=== PATIENT | male | born 1965 | race Two or more races ===

== ENCOUNTER 2018-10-14 11:14 | Emergency (ER) | payer SELFPAY ==
[~2018-10-14] VITALS: Ht 175.3 cm; Wt 102.3 kg
[2018-10-14] MEDS ORDERED: METF-960 PO (11:25)
[2018-10-14 11:35] LABS: GLUCOSE,POINT OF CARE 228 MG/DL (70-110)
[2018-10-14] MEDS ORDERED: BENZONATATE 100 MG CAPSULE PO ONE (12:00)
[2018-10-14 14:38] VITALS: BP 126/70
== END 2018-10-14 14:39 | disposition home or self-care (01) ==
LOC: EMS 11:14
DX: R05 Cough (principal); I10 Essential (primary) hypertension; E11.9 Type 2 diabetes mellitus without complications

== ENCOUNTER 2019-02-16 15:52 | Emergency (ER) | payer SELFPAY ==
[~2019-02-16] VITALS: Ht 175.3 cm; Wt 93.2 kg
[~2019-02-16 15:52] MED LIST: METF-960 PO
[2019-02-16] MEDS ORDERED: DEXT118S5 PO (15:56)
[2019-02-16 16:05] LABS: GLUCOSE,POINT OF CARE 127 MG/DL (70-110)
[2019-02-16 17:40] VITALS: BP 126/81
[2019-02-16] MEDS ORDERED: DOXYCYCLINE HYCLATE 100 MG CAPSULE PO ONE (17:45)
== END 2019-02-16 17:57 | disposition home or self-care (01) ==
LOC: EMS 15:55
DX: J40 Bronchitis, not specified as acute or chronic (principal); I10 Essential (primary) hypertension; E11.9 Type 2 diabetes mellitus without complications; F17.210 Nicotine dependence, cigarettes, uncomplicated; Z79.84 Long term (current) use of oral hypoglycemic drugs

== ENCOUNTER 2019-03-02 15:42 | Emergency (ER) | payer SELFPAY ==
[~2019-03-02] VITALS: Ht 175.3 cm; Wt 127.3 kg
[~2019-03-02 15:42] MED LIST changes: +DEXT118S5 PO
[2019-03-02] MEDS ORDERED: METF-960 PO (15:57)
[2019-03-02] MEDS ORDERED: LOSA25TA41 PO (15:57)
[2019-03-02] MEDS ORDERED: GLIM4 PO (15:57)
[2019-03-02] MEDS ORDERED: ATOR40TA28 PO (15:57)
[2019-03-02 16:00] LABS: GLUCOSE,POINT OF CARE 228 MG/DL (70-110)
[2019-03-02 16:45] LABS: BASOPHILS % (AUTO) 0.6 % (0.0-2.0); EOSINOPHILS % (AUTO) 1.8 % (1.0-6.0); LYMPHOCYTES # (AUTO) 2.3 K/uL (1.0-4.8); LYMPHOCYTES % (AUTO) 26.8 % (22.0-44.0); MEAN CORPUSCULAR HEMOGLOBIN 27.9 pg (26.0-34.0); MEAN CORPUSCULAR HGB CONC 33.2 G/dL (31.0-37.0); MEAN CORPUSCULAR VOLUME 84 fL (80-100); MONOCYTES # (AUTO) 0.6 K/uL (0.1-1.0); MONOCYTES % (AUTO) 6.4 % (2.0-9.0); NEUTROPHILS # (AUTO) 5.6 K/uL (1.8-7.7); NEUTROPHILS % (AUTO) 64.4 % (40.0-70.0); PLATELET COUNT (AUTO) 234 K/uL (150-450); RED CELL DISTRIBUTION WIDTH 13.3 % (11.5-14.5)
[2019-03-02 16:52] LABS: CARBON DIOXIDE 31 mmol/L (22-29); CHLORIDE 103 mmol/L (98-107); POTASSIUM 4.2 mmol/L (3.5-5.1); SODIUM SERUM 139 mmol/L (136-145)
[2019-03-02 16:53] LABS: ANION GAP 5 mmol/L (8-16); CALCIUM, TOTAL 9.7 mg/dL (8.8-10.5); CREATININE 1.12 mg/dL (0.60-1.30); GLOMERULAR FILTR. RATE CALC > 60 mL/min (>60); GLUCOSE,RANDOM 215 mg/dL (70-110); UREA NITROGEN, BLOOD 10 mg/dL (7-18)
[2019-03-02 16:58] LABS: ALANINE AMINOTRANSFERASE 30 U/L (12-78); ALBUMIN 3.6 g/dL (3.4-5.0); ALKALINE PHOSPHATASE 106 U/L (46-116); ASPARTATE AMINOTRANSFERASE 13 U/L (15-37); BILIRUBIN,TOTAL 0.4 mg/dL (0.1-1.0); TOTAL PROTEIN, SERUM 7.5 g/dL (6.4-8.2)
[2019-03-02 17:03] LABS: B-TYPE NATRIURETIC PEPTIDE 8 pg/mL (0-100)
[2019-03-02] MEDS ORDERED: IBUPROFEN 800 MG TABLET PO ONE (17:30)
[2019-03-02 18:20] LABS: AMPHET/METH SCREEN,URINE NEGATIVE (NEGATIVE); BARBITURATE SCREEN, URINE NEGATIVE (NEGATIVE); BENZODIAZEPINES SCREEN,URINE NEGATIVE (NEGATIVE); CANNABINOID SCREEN,URINE NEGATIVE (NEGATIVE); COCAINE SCREEN,URINE NEGATIVE (NEGATIVE); METHADONE SCREEN, URINE NEGATIVE (NEGATIVE); OPIATE SCREEN,URINE NEGATIVE (NEGATIVE)
[2019-03-02 18:21] LABS: PHENCYCLIDINE SCREEN,URINE NEGATIVE (NEGATIVE)
[2019-03-02 18:35] VITALS: BP 135/72
== END 2019-03-02 18:54 | disposition home or self-care (01) ==
LOC: EMS 15:43
DX: L03.221 Cellulitis of neck (principal); E11.9 Type 2 diabetes mellitus without complications; E78.00 Pure hypercholesterolemia, unspecified; I10 Essential (primary) hypertension; F17.210 Nicotine dependence, cigarettes, uncomplicated; Z79.899 Other long term (current) drug therapy

== ENCOUNTER 2020-04-17 16:34 | Emergency (ER) | payer MEDICAID ==
[~2020-04-17] VITALS: Ht 175.3 cm; Wt 97.7 kg
[~2020-04-17 16:34] MED LIST changes: +ATOR40TA28 PO; -DEXT118S5 PO; +GLIM4 PO; +LOSA25TA21 PO
[2020-04-17 21:12] LABS: COVID AG,FIA SOURCE NASOPHARYNGEAL
[2020-04-17 21:23] LABS: BASOPHILS % (AUTO) 0.8 % (0.0-2.0); EOSINOPHILS % (AUTO) 4.7 % (1.0-6.0); HEMATOCRIT 43.5 % (41-53); HEMOGLOBIN 14.4 g/dL (13.5-17.5); LYMPHOCYTES # (AUTO) 1.8 K/uL (1.0-4.8); LYMPHOCYTES % (AUTO) 26.2 % (22.0-44.0); MEAN CORPUSCULAR HEMOGLOBIN 28.8 pg (26.0-34.0); MEAN CORPUSCULAR HGB CONC 33.1 G/dL (31.0-37.0); MEAN CORPUSCULAR VOLUME 87 fL (80-100); MONOCYTES # (AUTO) 0.5 K/uL (0.1-1.0); MONOCYTES % (AUTO) 7.4 % (2.0-9.0); NEUTROPHILS # (AUTO) 4.1 K/uL (1.8-7.7); NEUTROPHILS % (AUTO) 60.9 % (40.0-70.0); PLATELET COUNT (AUTO) 205 K/uL (150-450); RED BLOOD CELL COUNT(AUTO) 5.01 MIL/uL (4.50-5.90); RED CELL DISTRIBUTION WIDTH 12.9 % (11.5-14.5)
[2020-04-17 21:33] LABS: INFLUENZA TYPE A NEGATIVE FOR TYPE A (NEGATIVE); INFLUENZA TYPE B NEGATIVE FOR TYPE B (NEGATIVE)
[2020-04-17 21:34] LABS: CALCIUM, TOTAL 9.2 mg/dL (8.8-10.5); CREATININE 1.34 mg/dL (0.60-1.30); POTASSIUM 3.9 mmol/L (3.5-5.1)
[2020-04-17 21:38] LABS: ALBUMIN 3.6 g/dL (3.4-5.0); BILIRUBIN,TOTAL 0.4 mg/dL (0.1-1.0); TOTAL PROTEIN, SERUM 7.2 g/dL (6.4-8.2)
[2020-04-18 00:28] VITALS: BP 135/78
== END 2020-04-18 00:48 | disposition home or self-care (01) ==
LOC: EMS 16:34
DX: R05 Cough (principal); R06.02 Shortness of breath; E11.9 Type 2 diabetes mellitus without complications; Z20.828 Contact with and (suspected) exposure to other viral communicable diseases; E78.00 Pure hypercholesterolemia, unspecified; I10 Essential (primary) hypertension; F17.210 Nicotine dependence, cigarettes, uncomplicated; F12.90 Cannabis use, unspecified, uncomplicated
CPT/HCPCS: 36415; 71045; 80053; 82962; 85025; 87426; 87804; 99284; 99406; U0003

== ENCOUNTER 2021-05-13 18:43 | Emergency (ER) | payer MEDICAID ==
[~2021-05-13] VITALS: Ht 175.3 cm; Wt 94.5 kg
[~2021-05-13 18:43] MED LIST changes: +LOSA-370 PO; -LOSA25TA21 PO; +METF-1211 PO; -METF-960 PO
[2021-05-13 19:43] LABS: BASOPHILS % (AUTO) 1.2 % (0.0-2.0); EOSINOPHILS % (AUTO) 6.7 % (1.0-6.0); HEMATOCRIT 42.7 % (41-53); HEMOGLOBIN 14.4 g/dL (13.5-17.5); LYMPHOCYTES # (AUTO) 0.9 K/uL (1.0-4.8); LYMPHOCYTES % (AUTO) 19.8 % (22.0-44.0); MEAN CORPUSCULAR HEMOGLOBIN 27.5 pg (26.0-34.0); MEAN CORPUSCULAR HGB CONC 33.7 G/dL (31.0-37.0); MEAN CORPUSCULAR VOLUME 82 fL (80-100); MONOCYTES # (AUTO) 0.5 K/uL (0.1-1.0); MONOCYTES % (AUTO) 10.2 % (2.0-9.0); NEUTROPHILS # (AUTO) 2.9 K/uL (1.8-7.7); NEUTROPHILS % (AUTO) 62.1 % (40.0-70.0); PLATELET COUNT (AUTO) 296 K/uL (150-450); RED BLOOD CELL COUNT(AUTO) 5.22 MIL/uL (4.50-5.90); RED CELL DISTRIBUTION WIDTH 12.8 % (11.5-14.5)
[2021-05-13 20:10] LABS: B-TYPE NATRIURETIC PEPTIDE 24 pg/mL (0-100)
[2021-05-13] MEDS: SODIUM CHLORIDE 0.9% 1,000 ML IV ONE (20:15)
[2021-05-13] MEDS: FAMOTIDINE 10 MG/ML 2 ML VIAL IVP ONE (20:16)
[2021-05-13] MEDS: MAG HYDROX/AL HYDROX/SIMETH 30 ML SUSP UDCUP PO ONE (20:16)
[2021-05-13] MEDS: KETOROLAC TROMETHAMINE 30 MG/ML VIAL IVP ONE (20:16)
[2021-05-13 20:18] LABS: ALANINE AMINOTRANSFERASE 48 U/L (12-78); ALBUMIN 3.4 g/dL (3.4-5.0); ALKALINE PHOSPHATASE 177 U/L (46-116); ANION GAP 9 mmol/L (8-16); ASPARTATE AMINOTRANSFERASE 22 U/L (15-37); BILIRUBIN,TOTAL 0.4 mg/dL (0.1-1.0); CARBON DIOXIDE 29 mmol/L (22-29); CHLORIDE 97 mmol/L (98-107); CREATINE KINASE, TOTAL ONLY 112 U/L (39-308); CREATININE 1.38 mg/dL (0.60-1.30); GLOMERULAR FILTR. RATE CALC 53 mL/min (>60); POTASSIUM 4.5 mmol/L (3.5-5.1); SODIUM SERUM 135 mmol/L (136-145); TOTAL PROTEIN, SERUM 7.8 g/dL (6.4-8.2); UREA NITROGEN, BLOOD 13 mg/dL (7-18)
[2021-05-13 20:25] LABS: GLUCOSE,RANDOM 452 mg/dL (70-110)
[2021-05-13 20:30] LABS: ACETONE,BLOOD NEGATIVE (NEGATIVE)
[2021-05-13 20:31] LABS: COVID AG,FIA SOURCE NASOPHARYNGEAL
[2021-05-13] MEDS: INSULIN REGULAR, HUMAN 100 UNITS/ML IVP ONE (21:12)
[2021-05-13 21:25] LABS: APPEARANCE,URINE CLEAR (CLEAR); BILIRUBIN,URINE NEGATIVE (NEGATIVE); GLUCOSE, URINE (UA) >=1000 mg/dL (NEGATIVE); KETONES,URINE NEGATIVE (NEGATIVE); LEUKOCYTE ESTERASE ,URINE NEGATIVE (NEGATIVE); NITRATE,URINE NEGATIVE (NEGATIVE); OCCULT BLOOD,URINE NEGATIVE (NEGATIVE); PH,URINE 5.5 (5.0-8.0); PROTEIN,URINE NEGATIVE (NEGATIVE); UROBILINOGEN,URINE 0.2 mg/dL (<=1.0)
[2021-05-13 21:41] LABS: INFLUENZA TYPE A NEGATIVE FOR TYPE A (NEGATIVE); INFLUENZA TYPE B NEGATIVE FOR TYPE B (NEGATIVE)
[2021-05-13 21:53] VITALS: BP 129/80
[2021-05-13 22:12] LABS: BACTERIA,URINE None Seen /HPF (None Seen); RBC,URINE None Seen /HPF (0-2); WBC,URINE 0-2 /HPF (0-5)
[2021-05-13 22:21] LABS: GLUCOSE,POINT OF CARE 300 MG/DL (70-110)
== END 2021-05-13 23:26 | disposition home or self-care (01) ==
LOC: EMS 18:46
DX: R05.9 Cough, unspecified (principal); B34.9 Viral infection, unspecified; E11.9 Type 2 diabetes mellitus without complications; E78.00 Pure hypercholesterolemia, unspecified; I10 Essential (primary) hypertension; F17.210 Nicotine dependence, cigarettes, uncomplicated; F12.90 Cannabis use, unspecified, uncomplicated; Z20.822 Contact with and (suspected) exposure to COVID-19; Z79.84 Long term (current) use of oral hypoglycemic drugs
CPT/HCPCS: 36415; 71045; 80053; 81001; 81003; 82009; 82550; 82962; 83735; 83880; 84100; 84484; 85025; 87426; 87804; 93005; 96361; 96374; 96375; 99285; J1885; J7030; U0003

== ENCOUNTER 2021-06-03 08:47 | Emergency (ER) | payer MEDICAID ==
[~2021-06-03] VITALS: Ht 175.3 cm; Wt 94.5 kg
[2021-06-03 09:44] VITALS: BP 115/68
[2021-06-03] MEDS ORDERED: AZITHROMYCIN 500 MG TABLET PO ONE (10:30)
[2021-06-03 11:01] LABS: BASOPHILS % (AUTO) 1.1 % (0.0-2.0); HEMATOCRIT 38.7 % (41-53); LYMPHOCYTES % (AUTO) 23.1 % (22.0-44.0); MEAN CORPUSCULAR HEMOGLOBIN 27.3 pg (26.0-34.0); MEAN CORPUSCULAR HGB CONC 33.7 G/dL (31.0-37.0); MEAN CORPUSCULAR VOLUME 81 fL (80-100); MONOCYTES # (AUTO) 0.5 K/uL (0.1-1.0); MONOCYTES % (AUTO) 11.2 % (2.0-9.0); NEUTROPHILS # (AUTO) 2.5 K/uL (1.8-7.7); NEUTROPHILS % (AUTO) 55.6 % (40.0-70.0); PLATELET COUNT (AUTO) 293 K/uL (150-450); RED BLOOD CELL COUNT(AUTO) 4.77 MIL/uL (4.50-5.90); RED CELL DISTRIBUTION WIDTH 12.8 % (11.5-14.5)
[2021-06-03 11:15] LABS: COVID AG,FIA SOURCE NASOPHARYNGEAL
[2021-06-03 11:36] LABS: ANION GAP 10 mmol/L (8-16); CALCIUM, TOTAL 9.6 mg/dL (8.8-10.5); CARBON DIOXIDE 27 mmol/L (22-29); CHLORIDE 101 mmol/L (98-107); GLOMERULAR FILTR. RATE CALC > 60 mL/min (>60); GLUCOSE,RANDOM 264 mg/dL (70-110); POTASSIUM 4.3 mmol/L (3.5-5.1); SODIUM SERUM 138 mmol/L (136-145); UREA NITROGEN, BLOOD 15 mg/dL (7-18)
[2021-06-03] MEDS ORDERED: AZIT-84 PO ×2 (11:37→12:05)
[2021-06-03 11:47] LABS: ALANINE AMINOTRANSFERASE 45 U/L (12-78); ALKALINE PHOSPHATASE 171 U/L (46-116); ASPARTATE AMINOTRANSFERASE 27 U/L (15-37); BILIRUBIN,TOTAL 0.4 mg/dL (0.1-1.0); TOTAL PROTEIN, SERUM 7.4 g/dL (6.4-8.2)
== END 2021-06-03 11:58 | disposition home or self-care (01) ==
LOC: EMS 08:49
DX: J18.9 Pneumonia, unspecified organism (principal); I10 Essential (primary) hypertension; E11.9 Type 2 diabetes mellitus without complications; E78.00 Pure hypercholesterolemia, unspecified; F17.210 Nicotine dependence, cigarettes, uncomplicated; Z79.84 Long term (current) use of oral hypoglycemic drugs; Z79.899 Other long term (current) drug therapy; Z20.822 Contact with and (suspected) exposure to COVID-19
CPT/HCPCS: 36415; 71045; 80053; 82962; 85025; 87426; 99284; Q9967

== ENCOUNTER 2021-06-17 09:46 | Emergency (ER) | payer MEDICAID ==
[~2021-06-17] VITALS: Ht 175.3 cm; Wt 95.5 kg
[~2021-06-17 09:46] MED LIST changes: +AZIT-84 PO
[2021-06-17 12:11] LABS: COVID AG,FIA SOURCE NASOPHARYNGEAL
[2021-06-17 14:00] VITALS: BP 124/80
== END 2021-06-17 14:20 | disposition home or self-care (01) ==
LOC: EMS 09:54
DX: E11.65 Type 2 diabetes mellitus with hyperglycemia (principal); R05.9 Cough, unspecified; I10 Essential (primary) hypertension; E78.00 Pure hypercholesterolemia, unspecified; F17.210 Nicotine dependence, cigarettes, uncomplicated; Z79.899 Other long term (current) drug therapy; Z20.822 Contact with and (suspected) exposure to COVID-19
CPT/HCPCS: 71045; 99284

== ENCOUNTER 2021-06-26 23:38 | Emergency (ER) | payer MEDICAID ==
[~2021-06-26] VITALS: Ht 175.3 cm; Wt 91.0 kg
[~2021-06-26 23:38] MED LIST changes: -LOSA-370 PO; +LOSA-381 PO
[2021-06-27] MEDS ORDERED: SODIUM CHLORIDE 0.9% 1,000 ML IV ONE (00:30)
[2021-06-27 00:38] LABS: BASOPHILS % (AUTO) 0.1 % (0.0-2.0); EOSINOPHILS % (AUTO) 0 % (1.0-6.0); HEMATOCRIT 38.9 % (41-53); HEMOGLOBIN 12.8 g/dL (13.5-17.5); LYMPHOCYTES # (AUTO) 1.1 K/uL (1.0-4.8); LYMPHOCYTES % (AUTO) 12.1 % (22.0-44.0); MEAN CORPUSCULAR HEMOGLOBIN 26.9 pg (26.0-34.0); MEAN CORPUSCULAR HGB CONC 32.8 G/dL (31.0-37.0); MEAN CORPUSCULAR VOLUME 82 fL (80-100); MONOCYTES # (AUTO) 0.5 K/uL (0.1-1.0); MONOCYTES % (AUTO) 5.9 % (2.0-9.0); NEUTROPHILS # (AUTO) 7.2 K/uL (1.8-7.7); NEUTROPHILS % (AUTO) 81.9 % (40.0-70.0); PLATELET COUNT (AUTO) 397 K/uL (150-450); RED BLOOD CELL COUNT(AUTO) 4.75 MIL/uL (4.50-5.90); RED CELL DISTRIBUTION WIDTH 13.3 % (11.5-14.5)
[2021-06-27 00:44] LABS: ANION GAP 10 mmol/L (8-16); CALCIUM, TOTAL 10.1 mg/dL (8.8-10.5); CARBON DIOXIDE 28 mmol/L (22-29); CHLORIDE 95 mmol/L (98-107); CREATININE 1.51 mg/dL (0.60-1.30); GLOMERULAR FILTR. RATE CALC 58 mL/min (>60); GLUCOSE,RANDOM 394 mg/dL (70-110); POTASSIUM 4.2 mmol/L (3.5-5.1); SODIUM SERUM 133 mmol/L (136-145); UREA NITROGEN, BLOOD 31 mg/dL (7-18)
[2021-06-27 00:50] LABS: ACETONE,BLOOD NEGATIVE (NEGATIVE); ALANINE AMINOTRANSFERASE 33 U/L (12-78); ALBUMIN 3.5 g/dL (3.4-5.0); ALKALINE PHOSPHATASE 152 U/L (46-116); ASPARTATE AMINOTRANSFERASE 11 U/L (15-37); BILIRUBIN,TOTAL 0.3 mg/dL (0.1-1.0); TOTAL PROTEIN, SERUM 8.3 g/dL (6.4-8.2)
[2021-06-27 00:51] LABS: APPEARANCE,URINE CLEAR (CLEAR); BILIRUBIN,URINE NEGATIVE (NEGATIVE); GLUCOSE, URINE (UA) >=1000 mg/dL (NEGATIVE); KETONES,URINE NEGATIVE (NEGATIVE); LEUKOCYTE ESTERASE ,URINE NEGATIVE (NEGATIVE); NITRATE,URINE NEGATIVE (NEGATIVE); OCCULT BLOOD,URINE NEGATIVE (NEGATIVE); PROTEIN,URINE NEGATIVE (NEGATIVE); UROBILINOGEN,URINE 0.2 mg/dL (<=1.0)
[2021-06-27 01:01] LABS: BACTERIA,URINE None Seen /HPF (None Seen); RBC,URINE None Seen /HPF (0-2); WBC,URINE None Seen /HPF (0-5)
[2021-06-27 01:58] VITALS: BP 124/70
[2021-06-27 02:01] LABS: GLUCOSE,POINT OF CARE 279 MG/DL (70-110)
== END 2021-06-27 02:13 | disposition home or self-care (01) ==
LOC: EMS 23:39
DX: E11.65 Type 2 diabetes mellitus with hyperglycemia (principal); I10 Essential (primary) hypertension; E78.00 Pure hypercholesterolemia, unspecified; F17.210 Nicotine dependence, cigarettes, uncomplicated; Z79.899 Other long term (current) drug therapy; Z79.84 Long term (current) use of oral hypoglycemic drugs
CPT/HCPCS: 80053; 81001; 82009; 82962; 85025; 96360; 99283; 36415-L1; 36415-TC

== ENCOUNTER 2024-04-21 09:11 | Emergency (ER) | payer MEDICAID, SELFPAY ==
[~2024-04-21] VITALS: Ht 175.3 cm; Wt 92.3 kg
[~2024-04-21 09:11] MED LIST changes: +AZIT-164 PO; -AZIT-84 PO; +GLIM-8 PO; -GLIM4 PO
[2024-04-21 09:17] VITALS: TEMP 98.1
[2024-04-21 09:40] LABS: GLUCOMETER DEV NAME(LOC) ERT.6; GLUCOSE,POINT OF CARE 368 MG/DL (70-110)
[2024-04-21 09:51] LABS: COVID AG,FIA SOURCE NASAL SWAB
[2024-04-21 10:23] LABS: SARS-COV2 (COVID) ANTIGEN,FIA Negative (Negative)
[2024-04-21 10:34] LABS: INFLUENZA TYPE A NEGATIVE FOR TYPE A (NEGATIVE); INFLUENZA TYPE B NEGATIVE FOR TYPE B (NEGATIVE)
[2024-04-21 12:04] LABS: BASOPHILS % (AUTO) 0.8 % (0.0-2.0); EOSINOPHILS % (AUTO) 3.6 % (1.0-6.0); HEMATOCRIT 43.6 % (41-53); HEMOGLOBIN 14.4 g/dL (13.5-17.5); LYMPHOCYTES # (AUTO) 1.4 K/uL (1.0-4.8); LYMPHOCYTES % (AUTO) 35.2 % (22.0-44.0); MEAN CORPUSCULAR HEMOGLOBIN 27.4 pg (26.0-34.0); MEAN CORPUSCULAR HGB CONC 33.1 G/dL (31.0-37.0); MEAN CORPUSCULAR VOLUME 83 fL (80-100); MONOCYTES # (AUTO) 0.4 K/uL (0.1-1.0); MONOCYTES % (AUTO) 10.9 % (2.0-9.0); NEUTROPHILS # (AUTO) 1.9 K/uL (1.8-7.7); NEUTROPHILS % (AUTO) 49.5 % (40.0-70.0); PLATELET COUNT (AUTO) 189 K/uL (150-450); RED BLOOD CELL COUNT(AUTO) 5.28 MIL/uL (4.50-5.90); WHITE BLOOD COUNT (AUTO) 3.9 K/uL (4.5-11.0)
[2024-04-21 12:13] LABS: ANION GAP 7 mmol/L (8-16); CALCIUM, TOTAL 9.3 mg/dL (8.8-10.5); CARBON DIOXIDE 27 mmol/L (22-29); CHLORIDE 100 mmol/L (98-107); CREATININE 1.17 mg/dL (0.60-1.30); GLOMERULAR FILTR. RATE CALC > 60 mL/min (>60); GLUCOSE,RANDOM 300 mg/dL (70-110); POTASSIUM 4.3 mmol/L (3.5-5.1); SODIUM SERUM 134 mmol/L (136-145); UREA NITROGEN, BLOOD 18 mg/dL (7-18)
[2024-04-21 12:22] LABS: B-TYPE NATRIURETIC PEPTIDE < 5 pg/mL (0-100)
[2024-04-21 13:00] VITALS: BP 114/69; PULSE 73; RESP 16; O2SAT 97
[2024-04-21] MEDS ORDERED: PIOG30TA70 PO (13:07)
[2024-04-21] MEDS: SODIUM CHLORIDE 0.9% 1,000 ML IV ONE (13:37)
[2024-04-21] MEDS ORDERED: BENZ-227 PO (14:24)
[2024-04-21] MEDS ORDERED: FLUT16SP NASAL (14:25)
[2024-04-21 19:31] LABS: GLUCOMETER DEV NAME(LOC) ER.7; GLUCOSE,POINT OF CARE 264 MG/DL (70-110)
== END 2024-04-21 15:32 | disposition home or self-care (01) ==
LOC: EMS 09:11
DX: J06.9 Acute upper respiratory infection, unspecified (principal); E11.65 Type 2 diabetes mellitus with hyperglycemia; E78.00 Pure hypercholesterolemia, unspecified; I10 Essential (primary) hypertension; Z59.12 Inadequate housing utilities; Z87.891 Personal history of nicotine dependence; Z20.822 Contact with and (suspected) exposure to COVID-19
CPT/HCPCS: 99284; 96360; 71046; 87426; 80048; 82962; 83880; 85025; 87804; 36415; J7030